=== PATIENT | female | born 1965 | race Caucasian/White ===

== ENCOUNTER 2019-05-15 14:09 | Outpatient (CLI) | payer BC, SELFPAY ==
--- NOTE | 2019-05-15 14:22 | MM_ITS ---
WS: [id number] SCREENING DIGITAL MAMMOGRAM WITH CAD HISTORY: SCREENING COMPARISON: 04/16/2018 and 04/05/2017 Bilateral CC and MLO views submitted. Computer aided detection analyzed. Breast composition: There are scattered areas of fibroglandular density. No suspicious masses, microc alcifications or architectural distortion. MM/[place] [id number] IMPRESSION: BI-RADS: 1-Negative FOLLOW UP: 1 Year Follow-up
== END 2019-05-15 14:10 | disposition home or self-care (01) ==
LOC: RADSHAW 14:13
PROVIDERS: Family Provider Family Medicine; Visit Provider Family Medicine
DX: Z12.31 Encounter for screening mammogram for malignant neoplasm of breast (principal)
CPT/HCPCS: 77067

== ENCOUNTER 2020-07-31 07:42 | Outpatient (CLI) | payer OTHER, SELFPAY ==
--- NOTE | 2020-07-31 07:47 | MM_ITS ---
WS: [id number] Bilateral screening digital mammogram, 07/31/2020 Clinical Data: SCREENING Comparison: 05/15/2019, 04/16/2018, 04/15/2017, 03/16/2016, 02/25/2015, 12/05/2013, 10/11/2010. Findings: The breast parenchymal pattern shows fibroglandular tissue No spiculated masses or clustered calcific ations are seen. There are no secondary signs of carcinoma. MM/[place] [id number] Impression: 1. Negative bilateral mammogram unchanged. 2. Recommend annual screening mammograms. BIRADS: 1-Negative FOLLOW UP: 1 Year Follow-up The CAD traffic checker was used.
== END 2020-07-31 07:43 | disposition home or self-care (01) ==
LOC: RADSHAW 07:46
PROVIDERS: PCP Family Medicine; Visit Provider Family Medicine
DX: Z12.31 Encounter for screening mammogram for malignant neoplasm of breast (principal)
CPT/HCPCS: 77067

== ENCOUNTER 2021-08-30 08:15 | Outpatient (CLI) | payer OTHER, SELFPAY ==
--- NOTE | 2021-08-30 08:34 | MM_ITS ---
WS: [id number] BILATERAL SCREENING TOMOSYNTHESIS DIGITAL MAMMOGRAM WITH CAD HISTORY: SCREENING COMPARISON: 2020, 05/15/2019 and 04/16/2018 Bilateral CC and MLO views submitted. Computer aided detection analyzed. Breast composition: There are scattered areas of fibroglandular density. No suspicious masses, microc alcifications or architectural distortion. MM/[place] [id number] IMPRESSION: BI-RADS: 1-Negative FOLLOW UP: 1 Year Follow-up
== END 2021-08-30 08:16 | disposition home or self-care (01) ==
LOC: RAD 08:18
PROVIDERS: PCP Family Medicine; Visit Provider Family Medicine
DX: Z12.31 Encounter for screening mammogram for malignant neoplasm of breast (principal)
CPT/HCPCS: 77063; 77067

== ENCOUNTER 2021-09-14 08:21 | Outpatient (CLI) | payer OTHER, SELFPAY ==
--- NOTE | 2021-09-14 08:32 | XRR_ITS ---
PROCEDURE INFORMATION: Exam: XR Left Knee Exam date and time: 09/14/2021 8:43 AM Age: 56 years old Clinical indication: Left; Patient HX: Chronic lt knee pain x years. Mostly on medial side of knee but goes all the way around patella; Additional info: L knee pain TECHNIQUE: Imaging protocol: XR Left knee. Views: 1 or 2 views. COMPARISON: No relevant prior studies available. FINDINGS: Bones/joints: Severe medial compartment with moderate lateral compartment and patellofemoral joint osteoarthritis. Meniscal chondrocalcinosis. Soft tissues: Normal. XR/XR knee LT 1-2V [id number] IMPRESSION: 1. Severe medial compartment with moderate lateral compartment and patellofemoral joint osteoarthritis. 2. Meniscal chondrocalcinosis.
== END 2021-09-14 08:22 | disposition home or self-care (01) ==
PROVIDERS: PCP Family Medicine; Visit Provider Family Medicine
DX: M11.262 Other chondrocalcinosis, left knee (principal); M17.0 Bilateral primary osteoarthritis of knee; E11.9 Type 2 diabetes mellitus without complications; I10 Essential (primary) hypertension; E78.5 Hyperlipidemia, unspecified
CPT/HCPCS: 73560; 80053; 80061; 83036

== ENCOUNTER → 2021-11-30 08:18 | Outpatient (BNVA) | payer OTHER, SELFPAY | PROVIDERS: PCP Family Medicine; Visit Provider Family Medicine | DX: E11.9 Type 2 diabetes mellitus without complications (principal); I10 Essential (primary) hypertension; E78.5 Hyperlipidemia, unspecified | CPT/HCPCS: 80053; 80061; 83036 ==

== ENCOUNTER → 2022-04-27 12:03 | Outpatient (BNVA) | payer OTHER, SELFPAY | PROVIDERS: PCP Family Medicine; Visit Provider Family Medicine | DX: E11.9 Type 2 diabetes mellitus without complications (principal); E78.5 Hyperlipidemia, unspecified; I10 Essential (primary) hypertension | CPT/HCPCS: 80053; 80061; 83036 ==

== ENCOUNTER 2022-09-08 08:18 | Outpatient (CLI) | payer OTHER, SELFPAY ==
--- NOTE | 2022-09-08 08:28 | MM_ITS ---
WS: [id number] Bilateral screening 3D tomosynthesis digital mammogram, 09/08/2022 Clinical Data: SCREENING Comparison: 08/30/2021, 07/31/2020, 05/15/2019, 04/16/2018, 04/05/2017, 03/16/2016, 05/28/2014, 12/05/2013, . Findings: The breast parenchymal pattern shows fibroglandular tissue. No spiculated masses or clustered calcifi cations are seen. There are no secondary signs of carcinoma. There are lymph nodes in both axilla. MM/[place] [id number] Impression: 1. Negative bilateral mammogram unchanged. 2. Recommend annual screening mammograms. BIRADS: 1-Negative FOLLOW UP: 1 Year Follow-up The CAD soil checker was used.
== END 2022-09-08 08:19 | disposition home or self-care (01) ==
LOC: RAD 08:22
PROVIDERS: PCP Family Medicine; Visit Provider Family Medicine
DX: Z12.31 Encounter for screening mammogram for malignant neoplasm of breast (principal)
CPT/HCPCS: 77063; 77067

== ENCOUNTER → 2022-09-27 08:18 | Outpatient (BNVA) | payer OTHER, SELFPAY | PROVIDERS: PCP Family Medicine; Visit Provider Family Medicine | DX: E11.9 Type 2 diabetes mellitus without complications (principal) | CPT/HCPCS: 80053; 80061; 83036 ==

== ENCOUNTER → 2023-01-19 09:04 | Outpatient (BNVA) | payer OTHER, SELFPAY | PROVIDERS: PCP Family Medicine; Visit Provider Family Medicine | DX: E78.5 Hyperlipidemia, unspecified (principal); I10 Essential (primary) hypertension; E11.9 Type 2 diabetes mellitus without complications | CPT/HCPCS: 80053; 80061; 83036 ==

== ENCOUNTER → 2023-05-04 08:31 | Outpatient (BNVA) | payer OTHER, SELFPAY | PROVIDERS: PCP Family Medicine; Visit Provider Family Medicine | DX: I10 Essential (primary) hypertension (principal); E78.5 Hyperlipidemia, unspecified; E11.9 Type 2 diabetes mellitus without complications; R22.41 Localized swelling, mass and lump, right lower limb | CPT/HCPCS: 80053; 80061; 83036 ==

== ENCOUNTER 2023-05-09 06:00 | Outpatient (CLI) | payer OTHER, SELFPAY ==
--- NOTE | 2023-05-09 06:15 | US_ITS ---
WS: [id number] ULTRASOUND SOFT TISSUES palpable mass medial RIGHT lower extremity. HISTORY: right leg mass COMPARISON: None available. TECHNIQUE: 2-D and color Doppler imaging is submitted. Ultrasound is directed along the medial RIGHT lower extremity. In the area of clinical concern is a p rominent varicosity and the greater saphenous vein. No thrombus is identified. There is soft tissue t hickening but no discrete mass is identified. There is no increased vascularity. IMPRESSION: 1. No focal mass is identified by ultrasound although there is a definite change in density by palpat ion in this area. 2. No superficial thrombophlebitis.
== END 2023-05-09 06:01 | disposition home or self-care (01) ==
LOC: RAD 06:01
PROVIDERS: PCP Family Medicine; Visit Provider Family Medicine
DX: R22.41 Localized swelling, mass and lump, right lower limb (principal)
CPT/HCPCS: 76882

== ENCOUNTER → 2023-08-10 08:18 | Outpatient (BNVA) | payer OTHER, SELFPAY | PROVIDERS: PCP Family Medicine; Visit Provider Family Medicine | DX: E11.9 Type 2 diabetes mellitus without complications (principal); I10 Essential (primary) hypertension; E78.5 Hyperlipidemia, unspecified | CPT/HCPCS: 80053; 80061; 83036 ==

== ENCOUNTER 2023-09-12 08:04 | Outpatient (CLI) | payer OTHER, SELFPAY ==
--- NOTE | 2023-09-12 08:09 | MM_ITS ---
WS: [id number] SCREENING DIGITAL TOMOSYNTHESIS MAMMOGRAM WITH CAD HISTORY: SCREENING COMPARISON: 09/08/2022, 08/30/2021 Bilateral CC and MLO with tomosynthesis views submitted. Synthetic mammography reviewed. Computer aid ed detection analyzed. Breast composition: There are scattered areas of fibroglandular density. No suspicious masses, microc alcifications or architectural distortion. MM/[place] [id number] IMPRESSION: BI-RADS: 1-Negative FOLLOW UP: 1 Year Follow-up
== END 2023-09-12 08:05 | disposition home or self-care (01) ==
LOC: RAD 08:04
PROVIDERS: PCP Family Medicine; Visit Provider Family Medicine
DX: Z12.31 Encounter for screening mammogram for malignant neoplasm of breast (principal)
CPT/HCPCS: 77063; 77067

== ENCOUNTER → 2024-04-11 11:17 | Outpatient (BNVA) | payer OTHER, SELFPAY | PROVIDERS: PCP Family Medicine; Visit Provider Family Medicine | DX: I10 Essential (primary) hypertension (principal); E78.5 Hyperlipidemia, unspecified; E11.9 Type 2 diabetes mellitus without complications; Z79.899 Other long term (current) drug therapy | CPT/HCPCS: 80053; 80061; 83036; 84550 ==

== ENCOUNTER → 2024-08-29 10:25 | Outpatient (BNVA) | payer OTHER, SELFPAY | PROVIDERS: PCP Family Medicine; Visit Provider Family Medicine | DX: I10 Essential (primary) hypertension (principal); E78.5 Hyperlipidemia, unspecified; E11.9 Type 2 diabetes mellitus without complications; R22.41 Localized swelling, mass and lump, right lower limb | CPT/HCPCS: 80053; 80061; 83036 ==

== ENCOUNTER → 2024-12-11 10:32 | Outpatient (BNVA) | payer OTHER, SELFPAY | PROVIDERS: PCP Family Medicine; Visit Provider Family Medicine | DX: I10 Essential (primary) hypertension (principal); E78.5 Hyperlipidemia, unspecified; E11.9 Type 2 diabetes mellitus without complications | CPT/HCPCS: 80053; 80061; 83036 ==

== ENCOUNTER 2025-02-21 09:21 | Outpatient (CLI) | payer OTHER, SELFPAY ==
--- NOTE | 2025-02-21 09:26 | MM_ITS ---
WS: [id number] Bilateral screening 3D tomosynthesis digital mammogram, 02/21/2025 9:37 AM Clinical Data: SCREENING Comparison: 09/12/2023, 09/08/2022, 08/30/2021, 07/31/2020, 05/15/2019, 04/16/2018, 04/05/2017, 03/16/2016, 02/25/2015, 12/05/2014, 10/11/2010. Findings: No spiculated masses or clustered calcifications are seen. There are no secondary signs of carcinoma. There are lymph nodes in both axilla. MM/MM scr [place] tomosynthesis [id number] Impression: Negative bilateral mammogram unchanged. Recommend annual screening mammograms. BIRADS: 1 - Negative. FOLLOW UP: 1 Year Follow-up DENSITY: There are scattered areas of fibroglandular density. The CAD security checker was used
== END 2025-02-21 09:22 | disposition home or self-care (01) ==
LOC: RAD 09:23
PROVIDERS: PCP Family Medicine; Visit Provider Family Medicine
DX: Z12.31 Encounter for screening mammogram for malignant neoplasm of breast (principal); R92.323 Mammographic fibroglandular density, bilateral breasts; Z59.9 Problem related to housing and economic circumstances, unspecified
CPT/HCPCS: 77063; 77067

== ENCOUNTER 2025-02-24 14:47 | Outpatient (CLI) | payer OTHER, SELFPAY ==
--- NOTE | 2025-02-24 14:55 | XR_ITS ---
WS: [id number] Exam: XR knee LT 3V* [id number] Date/Time of Exam: 02/24/2025 2:55 PM Reason For Exam: L KNEE ARTHRITIS Comparison 09/14/2021. Moderately advanced degenerative narrowing of the medial joint compartment. No fracture. Chondrocalcinosis of the medial and lateral menisci. No joint effusion. XR/XR knee LT 3V* [id number] IMPRESSION: 1. Moderate degenerative change of the medial joint compartment and chondrocalc inosis of the medial and lateral menisci.
== END 2025-02-24 14:48 | disposition home or self-care (01) ==
PROVIDERS: PCP Family Medicine; Visit Provider Family Medicine
DX: M17.12 Unilateral primary osteoarthritis, left knee (principal); M11.262 Other chondrocalcinosis, left knee
CPT/HCPCS: 73562

== ENCOUNTER 2025-02-27 14:53 | Outpatient (CLI) | payer OTHER, SELFPAY ==
--- NOTE | 2025-02-27 15:00 | USCV_ITS ---
Yanet Moncada Age: 60 Gender: F : 1965 Exam Date: 02/27/2025 15:19 Ordering Phys: Jessy Kohli DO Technologist: KEN Exam Location: [facility] – [place] Indication: Left leg pain HISTORY: Lower extremity pain-LEFT PROCEDURES: Venous duplex imaging was performed in only the left lower extremity. The following venous structures were evaluated: common femoral vein, profunda vein, proximal portion of the greater saphenous vein, superficial femoral vein, and the popliteal vein. In addition, the posterior tibial and peroneal trunk were evaluated. FINDINGS: Normal 2-D Doppler and augmentation and compressibility throughout the lower extremity venous structures. Additional imaging through the proximal calf veins also reveals no thrombus. Limited evaluation of the greater saphenous vein is patent with no thrombus. CONCLUSIONS No DVT left lower extremity. Dr. Juanis Simon DO (Electronically Signed) Final Date: 27 February 2025 15:37 S
== END 2025-02-27 14:54 | disposition home or self-care (01) ==
LOC: RAD 14:54
PROVIDERS: PCP Family Medicine; Visit Provider Family Medicine
DX: R60.0 Localized edema (principal); M79.605 Pain in left leg
CPT/HCPCS: 93971